=== PATIENT | male | born 1950 | race Caucasian/White ===

== ENCOUNTER → 2019-01-27 | Outpatient (REF) | payer MEDICARE | LOC: M SFHCLERA 13:35 | PROVIDERS: ATTEND Physician Assistant | DX: R31.9 Hematuria, unspecified (principal) ==

== ENCOUNTER → 2019-01-27 | Outpatient (CLI) | payer MEDICARE ==
--- NOTE | 2019-01-27 14:19 | REP ---
KUB ONE VIEW: HISTORY: Hematuria. Air is present in small and large intestine. There are no air fluid levels or dilated loops of intestine. There is no pneumoperitoneum. A mild amount of stool is present in the colon. IMPRESSION: Nonspecific bowel gas pattern. Electronically Signed by Olegario Wright MD 01/27/2019 02:22 P
== END ==
LOC: M LRY 13:39
PROVIDERS: ATTEND Physician Assistant
DX: R31.9 Hematuria, unspecified (principal); Z87.442 Personal history of urinary calculi
CPT/HCPCS: 74018; 81002; 87086; G0463